=== PATIENT | male | born 2000 | race Caucasian/White ===

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

== ENCOUNTER 2021-02-13 17:14 | Emergency (ER) | payer OTHER ==
[~2021-02-13 17:14] MED LIST changes: +FLONASE 0.05% N16 GM; +ZYRTEC10 MG PO
[2021-02-13] MEDS ORDERED: DELSYM30 MG/5 ML PO (19:59)
[2021-02-13] MEDS ORDERED: MEDROL DOSEPAK 24 MG PO (19:59)
[2021-02-13] MEDS ORDERED: FLONASE ALLER15.8 ML (19:59)
== END 2021-02-13 20:03 | disposition home or self-care (01) ==
LOC: ER1 17:14
DX: J02.9 Acute pharyngitis, unspecified (principal); Z88.1 Allergy status to other antibiotic agents; F17.200 Nicotine dependence, unspecified, uncomplicated; Z20.822 Contact with and (suspected) exposure to COVID-19
CPT/HCPCS: 87081; 87880; 99284; U0003

== ENCOUNTER 2021-05-17 17:18 | Emergency (ER) | payer OTHER ==
[~2021-05-17 17:18] MED LIST changes: +DELSYM30 MG/5 ML PO; +FLONASE ALLER15.8 ML; +MEDROL DOSEPAK 24 MG PO
== END 2021-05-17 17:50 | disposition home or self-care (01) ==
LOC: ER1 17:18
DX: R20.2 Paresthesia of skin (principal); R20.0 Anesthesia of skin; F17.200 Nicotine dependence, unspecified, uncomplicated
CPT/HCPCS: 96372; 99283; J1885

== ENCOUNTER 2021-11-07 11:49 | Emergency (ER) | payer SELFPAY ==
[2021-11-07] MEDS ORDERED: AMOXICILLIN875 MG PO (12:56)
== END 2021-11-07 13:18 | disposition home or self-care (01) ==
LOC: ER1 11:49
DX: R10.31 Right lower quadrant pain (principal); R22.0 Localized swelling, mass and lump, head; F17.200 Nicotine dependence, unspecified, uncomplicated; Z88.1 Allergy status to other antibiotic agents
CPT/HCPCS: 99283